=== PATIENT | male | born 2000 | race African-American/Black ===

== ENCOUNTER 2024-07-04 21:18 | Emergency (ER) | payer MEDICAID ==
[~2024-07-04] VITALS: Ht 185.4 cm; Wt 127.3 kg
[2024-07-04 21:27] VITALS: BP 145/75; PULSE 91; RESP 18; TEMP 98; O2SAT 98
[2024-07-04 22:50] LABS: COVID AG,FIA SOURCE NASAL SWAB
[2024-07-04 23:08] LABS: RAPID GROUP A STREP NEGATIVE (NEGATIVE)
[2024-07-04 23:16] LABS: INFLUENZA TYPE A NEGATIVE FOR TYPE A (NEGATIVE); INFLUENZA TYPE B NEGATIVE FOR TYPE B (NEGATIVE); SARS-COV2 (COVID) ANTIGEN,FIA Negative (Negative)
[2024-07-05] MEDS ORDERED: IBUP-1492 PO (00:49)
[2024-07-05] MEDS ORDERED: ACET-3385 PO (00:49)
== END 2024-07-05 01:12 | disposition home or self-care (01) ==
LOC: EMS 21:18
DX: B34.9 Viral infection, unspecified (principal); Z20.822 Contact with and (suspected) exposure to COVID-19
CPT/HCPCS: 87430; 87804; 99283

== ENCOUNTER 2025-04-25 15:55 | Emergency (ER) | payer MEDICAID, OTHER ==
[~2025-04-25] VITALS: Ht 185.4 cm; Wt 127.3 kg
[~2025-04-25 15:55] MED LIST: ACET-3385 PO; IBUP-1492 PO
[2025-04-25 15:59] VITALS: TEMP 98.7
[2025-04-25 16:19] VITALS: BP 130/77; PULSE 88; RESP 16; O2SAT 98
[2025-04-25] MEDS: IBUPROFEN 600 MG TABLET PO ONE (16:45)
[2025-04-25] MEDS: ACETAMINOPHEN 500 MG TABLET PO ONE (16:45)
[2025-04-25] MEDS ORDERED: ACET-66 PO (18:53)
[2025-04-25] MEDS ORDERED: METH-659 PO (18:53)
[2025-04-25] MEDS ORDERED: IBUP-1554 PO (18:53)
== END 2025-04-25 18:57 | disposition home or self-care (01) ==
LOC: EMS 15:55
DX: S46.912A Strain of unspecified muscle, fascia and tendon at shoulder and upper arm level, left arm, initial encounter (principal); S80.01XA Contusion of right knee, initial encounter; M54.6 Pain in thoracic spine; V49.9XXA Car occupant (driver) (passenger) injured in unspecified traffic accident, initial encounter; Y93.89 Activity, other specified; Y92.410 Unspecified street and highway as the place of occurrence of the external cause; Y99.8 Other external cause status
CPT/HCPCS: 72040; 72070; 72100; 99284; 73030-TC; 73562-TC; Z7502; Z7610